=== PATIENT | male | born 1990 | race Hispanic/Latino ===

== ENCOUNTER 2018-11-10 14:17 | Emergency (ER) | payer OTHER ==
--- NOTE | 2018-11-10 15:03 | RAD ---
Date of service: 11/10/2018 HISTORY: Shortness of breath COMPARISON: No prior. FINDINGS: LUNGS: The lungs are well inflated and clear. PLEURA: No pleural effusions or pneumothorax. CARDIOVASCULAR: The heart is normal in size. No aortic atherosclerotic calcification present. OSSEOUS STRUCTURES: Within normal limits for the patient's age. VISUALIZED UPPER ABDOMEN: Normal. OTHER FINDINGS: None. IMPRESSION: No active pulmonary disease.
[2018-11-10 15:04] LABS: BASO % 0.3 % (0.0-2.0); EOS % 0.2 % (0.0-4.0); HEMOGLOBIN 15.4 g/dL (12.0-18.0); LYMPH # 0.3 K/uL (1.0-4.3); LYMPH % 3.9 % (20.0-40.0); MEAN CELL VOLUME 84.6 fl (80.0-94.0); MEAN CORPUSCULAR HEMOGLOBIN 28.7 pg (27.0-31.0); MEAN PLATELET VOLUME 6.8 fl (7.2-11.7); MONO # 0.4 K/uL (0.0-0.8); NEUT # 7.7 K/uL (1.8-7.0); NEUT % 90.6 % (50.0-75.0); NRBC % 0.1 % (0.0-0.0); PLATELET COUNT 275 K/uL (130-400); RBC 5.37 Mil/uL (4.40-5.90); RED CELL DISTRIBUTION WIDTH 12.2 % (11.5-14.5); WHITE BLOOD COUNT 8.5 K/uL (4.8-10.8)
[2018-11-10 15:13] LABS: PROTHROMBIN TIME 11.9 Seconds (9.8-13.1)
[2018-11-10 15:15] LABS: PARTIAL THROMBOPLASTIN TIME 27.7 Seconds (25.6-37.1)
[2018-11-10 15:22] LABS: D DIMER < 200 ng/mlDDU (0-230)
[2018-11-10 15:28] LABS: ALB/GLOB RATIO 1.5 (1.0-2.1); ALBUMIN 4.4 g/dL (3.5-5.0); ALT/SGPT 40 U/L (21-72); AST/SGOT 36 U/L (17-59); BLOOD UREA NITROGEN 19 mg/dl (9-20); GFR NON-AFRICAN AMERICAN > 60
[2018-11-10 15:38] LABS: BANDS 3 % (0-2); LYMPHOCYTE 2 % (20-50); MONOCYTE 4 % (0-10); NEUTROPHIL 91 % (42-75); PLATELET ESTIMATE NORMAL (NORMAL); TOTAL CELLS COUNTED 100
[2018-11-10] MEDS ORDERED: Sodium Chloride 0.9% 1,000 ML IV STA (16:34)
--- NOTE | 2018-11-10 17:33 | ED PDOC ---
HPI: Chest Pain Time Seen by Provider: 11/10/18 14:32 Chief Complaint (Nursing): Chest Pain Chief Complaint (Provider): chest pain, nausea History Per: Patient History/Exam Limitations: no limitations Current Symptoms Are (Timing): Still Present Quality: Tightness Associated Symptoms: Nausea. 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 Denies dyspnea, diaphoresis, weakness, syncope, melena or hematemesis. Denies drug use, denies recent alcohol use. States normal exercise tolerance recently, went to gym last night and ran 45min without issue. Denies feeling anxious although notes perioral tingling and bilateral hand paresthesias. Past Medical History Reviewed: Historical Data, Nursing Documentation, Vital Signs Vital Signs: Last Vital Signs Temp 98 F 11/10/18 14:29 Pulse 113 H 11/10/18 14:29 Resp 28 H 11/10/18 14:29 BP 106/62 11/10/18 14:29 Pulse Ox 100 11/10/18 14:29 - Medical History PMH: Bronchitis Denies: Chronic Kidney Disease - Surgical History Surgical History: No Surg Hx - Family History Family History: States: Hypertension (father), Other Other Family History: denies fam hx of cardiac disease, blood clots or sudden cardiac - Living Arrangements Living Arrangements: With Family - Social History Current smoker - smoking cessation education provided: No Drugs: Denies - Home Medications Home Medications: Ambulatory Orders Medication Instructions Recorded Ondansetron ODT [Zofran ODT] 4 mg PO Q6 PRN #10 odt 11/10/18 Ranitidine HCl [Zantac] 150 mg PO BID #20 tablet 11/10/18 - Allergies Allergies/Adverse Reactions: Allergies Allergy/AdvReac Type Severity Reaction Status Date / Time No Known Allergies Allergy Verified 11/10/18 14:29 Review of Systems Constitutional: Negative for: Fever Cardiovascular: Positive for: Chest Pain. Negative for: Palpitations, Orthopnea Respiratory: Negative for: Cough, Shortness of Breath Gastrointestinal: Positive for: Nausea. Negative for: Vomiting, Abdominal Pain Genitourinary Male: Negative for: Dysuria Skin: Negative for: Rash, Lesions Neurological: Negative for: Weakness, Numbness, Altered Mental Status, Headache, Dizziness Psych: Negative for: Suicidal ideation, Withdrawal Physical Exam - Reviewed Nursing Documentation Reviewed: Yes Vital Signs Reviewed: Yes - Physical Exam Appears: Positive for: Non-toxic (anxious appearing), No Acute Distress Head Exam: Positive for: ATRAUMATIC, NORMAL INSPECTION, NORMOCEPHALIC Skin: Positive for: Normal Color, Warm, DRY Eye Exam: Positive for: EOMI, Normal appearance, PERRL ENT: Positive for: Normal ENT Inspection Neck: Positive for: Normal, Painless ROM Cardiovascular/Chest: Positive for: Regular Rate, Rhythm Respiratory: Positive for: Normal Breath Sounds. Negative for: Decreased Breath Sounds Pulses-Radial (L): 3+/4+ Pulses-Radial (R): 3+/4+ Gastrointestinal/Abdominal: Positive for: Soft. Negative for: Tenderness Back: Positive for: Normal Inspection Extremity: Positive for: Normal ROM Neurologic/Psych: Positive for: Alert, Oriented. Negative for: Motor/Sensory Deficits - Laboratory Results Result Diagrams: 11/10/18 14:55 11/10/18 14:55 - ECG ECG: Positive for: Interpreted By Me ECG Rhythm: Positive for: Normal QRS, Sinus Tachycardia. Negative for: ST/T Changes Rate: 101 O2 Sat by Pulse Oximetry: 100 Pulse Ox Interpretation: Normal Medical Decision Making Medical Decision Making: workup for atypical chest pain w nausea initiated labs reviewed and unremarkable Utox neg trop neg x2 over approx 3hrs HEART SCORE 1 LFTs normal, no RUQ tenderness, explained if symptoms persist needs biliary/GB workup, patient preferred to go home and followup PMD/ [facility] re-eval 745p improved, denies pain only notes hunger. Disposition - Clinical Impression Clinical Impression: Chest pain, Nausea - Patient ED Disposition Is Patient to be Admitted: No Counseled Patient/Family Regarding: Studies Performed, Diagnosis - Disposition Referrals: Gabriele Galvan MD [Staff Provider] - Disposition: Routine/Home Disposition Time: 19:51 Condition: STABLE Additional Instructions: Followup with your doctor for further testing in next 2-3 days, Return to ER for any worse or new symptoms. Prescriptions: Ondansetron ODT [Zofran ODT] 4 mg PO Q6 PRN #10 odt PRN Reason: Nausea/Vomiting Ranitidine HCl [Zantac] 150 mg PO BID #20 tablet Instructions: Chest Pain, Nausea and Vomiting, Adult Forms: [facility] (Martiniquais)
[2018-11-10 18:31] LABS: BARBITURATES, UR NEGATIVE (NEGATIVE); BENZODIAZEPINES, UR NEGATIVE (NEGATIVE); OPIATES, UR NEGATIVE (NEGATIVE); PHENCYCLIDINE, UR NEGATIVE (NEGATIVE)
--- NOTE | 2018-11-10 18:55 | CARD ---
APPROVED REPORT Date of service: 11/10/2018 EKG Measurement Heart [id number] <Conclusion> Sinus tachycardia Otherwise normal ECG
[2018-11-10 19:51] VITALS: O2SAT 100
[2018-11-10 20:00] VITALS: BP 105/58; PULSE 88; RESP 18; TEMP 98.8
== END 2018-11-10 20:01 | disposition home or self-care (01) ==
LOC: H.ER 14:17
DX: R07.89 Other chest pain (principal); R11.0 Nausea
CPT/HCPCS: 71045; 80053; 80324; 80345; 80346; 80349; 80353; 80358; 80361; 83880; 83992; 84484; 85025; 85378; 85610; 85730; 93005; 96361; 96374; 96375; 99285; J1885; J2060; J2405; J7030